=== PATIENT | male | born 1950 | race African-American/Black ===

== ENCOUNTER 2017-07-14 13:15 | Emergency (ER) | payer MEDICARE, OTHER ==
[2017-07-14 13:44] VITALS: BP 137/86
--- NOTE | 2017-07-14 14:23 | ER Document Report ---
ED General - General Chief Complaint: Medication Refill Stated Complaint: MEDICATION REFILL Time Seen by Provider: 07/14/17 14:11 Mode of Arrival: Ambulatory TRAVEL OUTSIDE OF THE [place] IN LAST 30 DAYS: No - HPI Quality of pain: No pain - Related Data Allergies/Adverse Reactions: aspirin [Aspirin] Adverse Reaction (Verified 07/14/17 13:44) Past Medical History - General Information source: Patient - Social History Smoking Status: Never Smoker Family History: Reviewed & Not Pertinent - Past Medical History Cardiac Medical History: Reports: Hx Hypertension Denies: Hx Atrial Fibrillation, Hx Congestive Heart Failure, Hx Coronary Artery Disease, Hx Heart Attack, Hx Hypercholesterolemia, Hx Peripheral Vascular Disease, Hx Pulmonary Embolism, Hx Heart Murmur Pulmonary Medical History: Denies: Hx Asthma, Hx Bronchitis, Hx COPD, Hx Pneumonia, Hx Respiratory Failure, Hx Sleep Apnea - Needs to be tested, not diagnosed, Hx Tuberculosis Neurological Medical History: Denies: Hx Cerebrovascular Accident, Hx Seizures Endocrine Medical History: Denies: Hx Graves' Disease, Hx Hyperthyroidism, Hx Hypothyroidism Renal/ Medical History: Denies: Hx Benign Prostatic Hyperplasia, Hx End Stage Renal Disease, Hx Kidney Stones, Hx Peritoneal Dialysis Malignancy Medical History: Denies Hx Leukemia, Denies Hx Lung Cancer GI Medical History: Reports: Hx Gastroesophageal Reflux Disease. Denies: Hx Crohn's Disease, Hx Hiatal Hernia, Hx Irritable Bowel, Hx Liver Failure, Hx Ulcer Musculoskeltal Medical History: Reports Hx Arthritis, Denies Hx Fibromyalgia, Denies Hx Multiple Sclerosis, Denies Hx Muscular Dystrophy Psychiatric Medical History: Denies: Hx Bipolar Disorder, Hx Dementia, Hx Depression, Hx Post Traumatic Stress Disorder, Hx Schizophrenia Traumatic Medical History: Denies: Hx Fractures Infectious Medical History: Denies: Hx HIV Past Surgical History: Reports: Hx Cholecystectomy. Denies: Hx Appendectomy, Hx Bowel Surgery, Hx Colostomy, Hx Coronary Artery Bypass Graft, Hx Gastric Bypass Surgery, Hx Herniorrhaphy, Hx Pacemaker, Hx Tonsillectomy - Immunizations Immunizations up to date: Yes Hx Diphtheria, Pertussis, Tetanus Vaccination: - unknown Hx Pneumococcal Vaccination: 08/31/11 Review of Systems - Review of Systems Constitutional: No symptoms reported EENT: No symptoms reported Cardiovascular: No symptoms reported Respiratory: No symptoms reported Gastrointestinal: No symptoms reported Genitourinary: No symptoms reported Male Genitourinary: No symptoms reported Musculoskeletal: No symptoms reported Skin: No symptoms reported Hematologic/Lymphatic: No symptoms reported Neurological/Psychological: No symptoms reported Physical Exam - Vital signs Vitals: Temp Pulse Resp BP Pulse Ox 98.8 F 72 14 137/86 H 95 07/14/17 13:39 07/14/17 13:39 07/14/17 13:39 07/14/17 13:39 07/14/17 13:39 - Notes Notes: Upon entering the room the patient asked me point blank whether is going to refill his Ultram prescription. I said we generally do not refill chronic scheduled medications. He became angry and belligerent that up at the bedside not allowing me to do a physical assessment on him. Numerous attempts to try to get him to calm down and sit down Diana do a full examination on him he refused to do so walked out of the department. He was awake alert with a GCS of 15 fully clothed and ambulatory after driving here. Vital signs were reviewed blood pressure 137/86 pulse 72 respiration 14 temp 98 8 O2 sat 95% on room air. Course - Re-evaluation Re-evalutation: 07/14/17 14:41 Patient presents emergency department wanting a refill on his Ultram prescription. Patient states that his doctor is out of town and that they told him that Dr. Andrade was covering. He states that he called Dr. Andrade's office and they told him to go to the emergency department but they do not refill any controlled substances. At the bedside the patient is very blunted asked me whether is going to refill the medication not I explained to him that we have a medication refill policy and that the primary care physician has rules and regulations on the refilling of medications. He became very angry spit up was very verbally abusive and argumentative stating that he was not being taken care of appropriately. He stated that he was going to go directly to Dr. Andrade' s office and tell them that they were going to refill her medications. At this point he did not allow me to do a physical examination refused to sit down or cooperate and walked out of the emergency department. I contacted Dr. Andrade's office who confirmed that they spoke to him and told him that they do not refill scheduled medications. I also spoke with Dr. Lopez's [place] revenue officer who stated that they had problems with him in the past being very verbally abusive and angry with them and that they were explained to him that until Dr. Lopez comes back do not want to refill the medication. I was concerned at this point about the possibility of him going to that primary care office upset and therefore communicated that with them as well. - Vital Signs Vital signs: Temp Pulse Resp BP Pulse Ox 98.8 F 72 14 137/86 H 95 07/14/17 13:39 07/14/17 13:39 07/14/17 13:39 07/14/17 13:39 07/14/17 13:39 Discharge - Discharge Clinical Impression: Medication refill Condition: Stable Disposition: HOME, SELF-CARE Additional Instructions: You have been seen and evaluated requesting a refill on a controlled substance. I spoke with your primary care [place] revenue officer who stated she explained he is in until your primary care physician comes back that he cannot get a refill on that that she is explained the policy to you. I have also contacted the nurse manager maritime at Dr. Andrade's office who remembers vividly telling him that they too do not refill controlled substances. He will need to make sure that you follow policy in regards to any controlled substances with your primary care physician and return for increasing worsening or new symptoms Referrals: BRET LOPEZ MD [Primary Care Provider] - Follow up in 3-5 days
== END 2017-07-14 14:25 | disposition home or self-care (01) ==
LOC: ER 13:15
DX: Z76.0 Encounter for issue of repeat prescription (principal)
CPT/HCPCS: 99281

== ENCOUNTER → 2017-12-08 | Outpatient (CLI) | payer OTHER, MEDICARE | LOC: SP 13:37 | PROVIDERS: ATTEND Internal Medicine | DX: R22.41 Localized swelling, mass and lump, right lower limb (principal) | CPT/HCPCS: 93971 ==

== ENCOUNTER → 2018-03-19 | Outpatient (CLI) | payer MEDICARE, OTHER ==
[~2018-03-19] MED LIST: AMINOPHYLLINE INJ/PF 250 MG/10 ML SDV IV ONE
--- NOTE | 2018-03-19 12:32 | DRAGON STRESS TEST REPORT ---
INTRAVENOUS LEXISCAN CARDIOLITE STRESS TEST USING SINGLE PHOTON EMMISION COMPUTERIZED TOMOGRAPHIC. DATE OF PROCEDURE: March 19, 2018, INDICATION : Chest pain CARDIAC RISK FACTORS: Hypertension RESTING EKG: Sinus rhythm, right bundle branch block pattern with some secondary ST-T wave changes. STRESS EKG: No significant ST segment changes noted with LexiScan bolus REASON FOR TERMINATION: Protocol. PROCEDURE REPORT: Baseline heart rate 75 beats per minute with blood pressure of 122/74. Patient had no significant complaints. Patient was bolused with Lexiscan 0.4 mg intravenously followed by saline bolus. Heart rate at 2 minutes post bolus 96 with a blood pressure of 127/76. 3 minutes post bolus heart rate 97 with blood pressure of 125/74. No significant EKG changes were noted. Patient had no significant complaints during the procedure or postprocedure. Patient injected with Aminophyllin 75 mg at 3 minutes or later after Lexiscan bolus. CONCLUSIONS: Normal EKG and hemodynamic response to IV LexiScan. NUCLEAR DATA: At rest the patient was given 14.62 millicuries of technetium 99 sestamibi injected intravenously. As per protocol rest gated SPECT images were obtained. On day of stress test, the patient was given intravenous LexiScan at a dose of 0.4 mg in 5 mL intravenously, followed by flush with normal saline. Subsequently the stress dose of 45.9 millicuries of technetium 99 sestamibi was injected intravenously. As per protocol stress gated images were obtained. NUCLEAR INTERPRETATION: Both raw and processed data were used for interpretation. Visual, qualitative, computer-generated quantitative data was used. There was good myocardial uptake of technetium compound. Motion artifact and soft tissue attenuations were noted. Increased visceral uptake was noted. No definitive areas of transient perfusion defect noted, No definitive areas of fixed perfusion defect or scars noted. EKG gated imaging showed LV EF at 65 %, rest and stress gated EF similar visually. T. I D. ratio was 0.93. Lung heart ratio noted to be within normal limits 0.32. No significant extracardiac and abnormal radiotracer activities were noted. RV free wall uptake was noted to be WNL. IMPRESSION: Also refer to comments under nuclear interpretation. Also test results needs to be interpreted in the context of pretest probability. 1. No definitive areas of transient perfusion defect noted. 2. There is no definitive scintigraphic evidence of myocardial infarction/scar. 3. EKG gated imaging shows left ventricular ejection fraction of approx. 65 %. 4. Clinical correlation requested as occasionally single vessel disease or balanced ischemia could be missed. In approximately 10% of the cases Lexiscan may not cause adequate vasodilatory stress. RECOMMENDATIONS: Aggressive risk factor modification and medical management. Further evaluation may be needed if continued symptoms or other high risk indicators are noted on clinical evaluation. Close cardiology follow-up is also recommended. Clinical correlation with echocardiogram derived ejection fraction. Inability to exercise by itself can lead to increased cardiovascular event risks. Consider cardiology consultation and or follow-up if clinically indicated. I am available for cardiology evaluation and consultation if requested by the rehabilitation worker, unless patient already has a zipper setter lockstitch. DENNISE
== END ==
LOC: RAD 06:23
PROVIDERS: ATTEND Internal Medicine
DX: R07.9 Chest pain, unspecified (principal)
CPT/HCPCS: 93017; 78452; A9500; J0280; Q9969

== ENCOUNTER → 2018-05-22 | Outpatient (CLI) | payer MEDICARE, OTHER ==
--- NOTE | 2018-05-22 16:37 | RADIOLOGY REPORT (SQ) ---
EXAM DESCRIPTION: ELBW BILATERAL 2 VIEWS MIN COMPLETED DATE/TIME: 05/22/2018 4:28 pm REASON FOR STUDY: M15.0 PRIMARY GENERALIZED (OSTEO) ARTHRITIS COMPARISON: None. NUMBER OF VIEWS: Four views. TECHNIQUE: AP, lateral, and both oblique radiographic images acquired of the right and left elbow. LIMITATIONS: None. FINDINGS: MINERALIZATION: Normal. BONES: No acute fracture or dislocation. No worrisome bone lesions. Posterior spur on the right and l eft olecranon. JOINT: No effusions. SOFT TISSUES: No soft tissue swelling. No foreign body. OTHER: No other significant finding. IMPRESSION: CHRONIC CHANGES WITH SPUR ON THE RIGHT AND LEFT OLECRANON. NO OTHER SIGNIFICANT FINDING S. TECHNICAL DOCUMENTATION: JOB ID: [id number] [employer]- All Rights Reserved Reading location - IP/workstation name: [email or web address]
--- NOTE | 2018-05-22 16:37 | RADIOLOGY REPORT (SQ) ---
EXAM DESCRIPTION: WRIST BILATERAL 2 VIEWS COMPLETED DATE/TIME: 05/22/2018 4:28 pm REASON FOR STUDY: M15.0 PRIMARY GENERALIZED (OSTEO) ARTHRITIS COMPARISON: None. NUMBER OF VIEWS: Two views. TECHNIQUE: AP, lateral, and oblique radiographic images acquired of the right and left wrist. LIMITATIONS: None. FINDINGS: MINERALIZATION: Normal. BONES: No acute fracture or dislocation. No worrisome bone lesions. Normal alignment. No significant osteophytes. JOINTS: No erosions. No aisha-articular osteopenia. No chondrocalcinosis. SOFT TISSUES: No swelling. No calcifications. OTHER: No other significant finding. IMPRESSION: NEGATIVE STUDY OF THE RIGHT AND LEFT WRISTS. NO EXPLANATION FOR PAIN. TECHNICAL DOCUMENTATION: JOB ID: [id number] [employer]- All Rights Reserved Reading location - IP/workstation name: [email or web address]
--- NOTE | 2018-05-22 16:38 | RADIOLOGY REPORT (SQ) ---
EXAM DESCRIPTION: HIPS BILATERAL COMPLETED DATE/TIME: 05/22/2018 4:28 pm REASON FOR STUDY: M15.0 PRIMARY GENERALIZED (OSTEO) ARTHRITIS COMPARISON: None. NUMBER OF VIEWS: Two views TECHNIQUE: AP pelvis and additional frog-leg view of both hips. LIMITATIONS: None. FINDINGS: MINERALIZATION: Normal. HIPS: No acute fracture or dislocation. No worrisome bone lesions. PELVIS AND SACRUM: No acute fracture or dislocation. No worrisome bone lesions. PUBIS AND ISCHIUM: No acute fracture. LOWER LUMBAR SPINE: No significant findings as visualized. SOFT TISSUES: No findings. OTHER: No other significant finding. IMPRESSION: NEGATIVE STUDY OF THE PELVIS AND HIPS. TECHNICAL DOCUMENTATION: JOB ID: [id number] [employer]- All Rights Reserved Reading location - IP/workstation name: [email or web address]
--- NOTE | 2018-05-22 16:38 | RADIOLOGY REPORT (SQ) ---
EXAM DESCRIPTION: KNEE BILAT AP UPRIGHT COMPLETED DATE/TIME: 05/22/2018 4:28 pm REASON FOR STUDY: M15.0 PRIMARY GENERALIZED (OSTEO) ARTHRITIS COMPARISON: None. NUMBER OF VIEWS: One view. TECHNIQUE: AP standing bilateral knees. LIMITATIONS: None. FINDINGS: MINERALIZATION: Normal. RIGHT KNEE BONES: No acute fracture. No worrisome bone lesions. MEDIAL COMPARTMENT: No significant osteophytes. No joint space narrowing. No chondrocalcinosis. LATERAL COMPARTMENT: No significant osteophytes. No joint space narrowing. No chondrocalcinosis. LEFT KNEE BONES: No acute fracture. No worrisome bone lesions. MEDIAL COMPARTMENT: No significant osteophytes. No joint space narrowing. No chondrocalcinosis. LATERAL COMPARTMENT: No significant osteophytes. No joint space narrowing. No chondrocalcinosis. IMPRESSION: NEGATIVE STUDY OF THE STANDING LEFT AND RIGHT KNEES. NO SIGNIFICANT JOINT SPACE NARROWIN G OR OTHER SIGNS OF ARTHRITIS. TECHNICAL DOCUMENTATION: JOB ID: [id number] [employer]- All Rights Reserved Reading location - IP/workstation name: [email or web address]
== END ==
LOC: RAD 15:52
PROVIDERS: ATTEND Internal Medicine
DX: M15.0 Primary generalized (osteo)arthritis (principal)
CPT/HCPCS: 73522; 73565

== ENCOUNTER 2018-07-27 09:38 | Day surgery (SDC) | payer MEDICARE, OTHER ==
[~2018-07-27 09:38] MED LIST changes: -AMINOPHYLLINE INJ/PF 250 MG/10 ML SDV IV ONE; +KETOROLAC TROMETHAMINE 0.45% 4 DROP/0.4 ML DROPERETTE OS PRN; +MIDAZOLAM 2 MG/2 ML INJ ONE
[2018-07-27] MEDS ORDERED: CHONDR SU A NA/HYALUR INTRAOC KIT (SURGICARE) ONE (09:44)
[2018-07-27] MEDS ORDERED: EPINEPHRINE INJ/PF 1 MG/1 ML AMPULE ONE (09:44)
[2018-07-27] MEDS ORDERED: LIDOCAINE 1% INJ-PF (10 MG/ML) 30 ML SDV ONE (09:44)
[2018-07-27] MEDS: CYCLOPENTOLATE 0.2%/PHENYLEPHRINE 1% OPH SOLN 2 ML OS PRN ×3 (10:23→10:43)
[2018-07-27] MEDS: TROPICAMIDE 1% OPH SOLN 3 ML OS PRN ×3 (10:23→10:43)
[2018-07-27] MEDS: BESIFLOXACIN HCL 0.6% OPH SUSP 5 ML BOTTLE OS PRN ×4 (10:23→11:23)
[2018-07-27] MEDS: TETRACAINE HCL 0.5% OPH SOLN 2 ML OS PRN ×3 (10:24→11:03)
[2018-07-27] MEDS ORDERED: MIDAZOLAM 2 MG/2 ML INJ ONE (13:24)
--- NOTE | 2018-07-27 16:21 | [facility] OPERATIVE REPORT E ---
[facility] Operative Report NAME: MAGALY KEANE AGE: 67Y DATE OF SURGERY: 07/27/2018 ROOM: PREOPERATIVE DIAGNOSIS: CATARACT, LEFT EYE. POSTOPERATIVE DIAGNOSIS: CATARACT, LEFT EYE. OPERATION: Cataract extraction with insertion of an IOL of the left eye. SURGEON: JASON PHILLIPS M.D. ANESTHESIA: Topical. PROCEDURE: After obtaining appropriate consent, the patient's left eye was prepped and draped in sterile fashion as well as the surgeon in a sterile manner and cataract surgery was started. First a paracentesis blade was used to make a side-port incision. Viscoelastic was used to inflate the anterior chamber. Next a 2.4 mm incision was made with a 2.4 mm blade, clear corneal temporally. A continuous capsulorrhexis was made using a cystotome and Utrata forceps. Following this hydrodissection was carried out to make the lens fully loose and mobile and it was rotated 90 degrees. Following this, a ypsqzm-mvl-voegqwe technique was used to phacoemulsify the lens with a CDE of 7.24. The remaining cortex was removed with irrigation/aspiration. Provisc was instilled into the capsular bag to inflate the bag. A SN60WF, 23.0 diopter lens was placed. The remaining viscoelastic material was removed with irrigation/aspiration. Following this, the incision was found to be watertight. Besivance was instilled into the eye and a protective shield was placed over the eye. The patient returned to the postoperative recovery in stable condition. DICTATING PHYSICIAN: JASON PHILLIPS M.D. [id number] PHY#: [id number] ID: [id number] JOB#: [id number] ACCT: [id number] cc:JASON PHILLIPS M.D. >
--- NOTE | 2018-07-27 16:21 | [facility] DISCHARGE SUMMARY E ---
[facility] Discharge Summary NAME: MAGALY KEANE AGE: 67Y ADMITTED: 07/27/2018 DISCHARGED: This is a 67-year-old male who underwent cataract extraction of the left eye. DIAGNOSIS: Cataract, left eye. He underwent surgery because he was having trouble seeing at night secondary to glare from the headlights. DISCHARGE INSTRUCTIONS: He should be on a regular diet. No bending at his waist, no heavy lifting. He is to use his Besivance, Ilevro, and Durezol at 3:00 p.m. and 8:00 p.m., and sleep with a rigid shield. I will see him for his 1-day postoperative tomorrow. DICTATING PHYSICIAN: JASON PHILLIPS M.D. [id number] PHY#: [id number] ID: [id number] JOB#: [id number] ACCT: [id number] cc:JASON PHILLIPS M.D. >
== END 2018-07-27 12:10 | disposition home or self-care (01) ==
LOC: SC 09:38
PROVIDERS: ATTEND Internal Medicine
DX: H25.813 Combined forms of age-related cataract, bilateral (principal); H43.811 Vitreous degeneration, right eye; H52.4 Presbyopia; I10 Essential (primary) hypertension; Z79.82 Long term (current) use of aspirin; Z79.899 Other long term (current) drug therapy
CPT/HCPCS: 66984; V2632; J2250; J3490 ×2; A9270; J0171; 142

== ENCOUNTER 2018-09-03 06:56 | Day surgery (SDC) | payer MEDICARE, OTHER ==
[~2018-09-03 06:56] MED LIST changes: +KETOROLAC TROMETHAMINE 0.45% 4 DROP/0.4 ML DROPERETTE OD PRN; -KETOROLAC TROMETHAMINE 0.45% 4 DROP/0.4 ML DROPERETTE OS PRN; -MIDAZOLAM 2 MG/2 ML INJ ONE
[2018-09-03] MEDS: TETRACAINE HCL 0.5% OPH SOLN 4 ML OD PRN ×4 (08:12→08:42)
[2018-09-03] MEDS: CYCLOPENTOLATE 0.2%/PHENYLEPHRINE 1% OPH SOLN 2 ML OD PRN ×3 (08:13→08:34)
[2018-09-03] MEDS: TROPICAMIDE 1% OPH SOLN 3 ML OD PRN ×3 (08:13→08:34)
[2018-09-03] MEDS: BESIFLOXACIN HCL 0.6% OPH SUSP 5 ML BOTTLE OD PRN ×4 (08:13→09:10)
[2018-09-03] MEDS ORDERED: MIDAZOLAM 2 MG/2 ML INJ ONE (08:26)
[2018-09-03] MEDS ORDERED: FENTANYL CITRATE INJ/PF 100 MCG/2 ML AMPUL ONE (08:26)
[2018-09-03] MEDS: LIDOCAINE 1% INJ-PF (10 MG/ML) 30 ML SDV ONE ×2 (08:53)
[2018-09-03] MEDS: CHONDR SU A NA/HYALUR INTRAOC KIT (SURGICARE) ONE ×2 (08:53)
[2018-09-03] MEDS: EPINEPHRINE INJ/PF 1 MG/1 ML AMPULE ONE ×2 (08:53)
[2018-09-03] MEDS ORDERED: TOBRAMYCIN SULFATE/DEXAMETH OPH SUSP 2.5 ML ONE (09:07)
[2018-09-03] MEDS ORDERED: TOBRAMYCIN SULFATE/DEXAMETH OPH OINTMENT 3.5 GM ONE (09:09)
--- NOTE | 2018-09-03 20:11 | [facility] OPERATIVE REPORT E ---
[facility] Operative Report NAME: MAGALY KEANE AGE: 67Y DATE OF SURGERY: 09/03/2018 ROOM: PREOPERATIVE DIAGNOSIS: CATARACT, RIGHT EYE. POSTOPERATIVE DIAGNOSIS: CATARACT, RIGHT EYE. OPERATION: Cataract extraction with insertion of an IOL of the right eye. SURGEON: JASON PHILLIPS M.D. ANESTHESIA: Topical. PROCEDURE: After obtaining appropriate consent, the patient's right eye was prepped and draped in sterile fashion as well as the surgeon in a sterile manner and cataract surgery was started. First a paracentesis blade was used to make a side-port incision. Viscoelastic was used to inflate the anterior chamber. Next a 2.4 mm incision was made with a 2.4 mm blade, clear corneal temporally. A continuous capsulorrhexis was made using a cystotome and Utrata forceps. Following this hydrodissection was carried out to make the lens fully loose and mobile and it was rotated 90 degrees. Following this, a vuachy-oye-znpchjg technique was used to phacoemulsify the lens with a CDE of 10.43. The remaining cortex was removed with irrigation/aspiration. Provisc was instilled into the capsular bag to inflate the bag. A SN60WF, 22.5 diopter lens was placed. The remaining viscoelastic material was removed with irrigation/aspiration. Following this, the incision was found to be watertight. Besivance was instilled into the eye and a protective shield was placed over the eye. The patient returned to the postoperative recovery in stable condition. DICTATING PHYSICIAN: JASON PHILLIPS M.D. [id number] PHY#: [id number] ID: [id number] JOB#: [id number] ACCT: [id number] cc:JASON PHILLIPS M.D. >
--- NOTE | 2018-09-03 20:16 | [facility] DISCHARGE SUMMARY E ---
[facility] Discharge Summary NAME: MAGALY KEANE AGE: 67Y ADMITTED: 09/03/2018 DISCHARGED: 09/03/2018 FINAL DIAGNOSIS: Cataract, right eye. HOSPITAL COURSE: This is a 67-year-old male who underwent cataract extraction, right eye. He underwent surgery because he was having glare from headlights at night, making it difficult to read the road signs. DISCHARGE INSTRUCTIONS: He should be on a regular diet. No bending at his waist, no heavy lifting. He should use Besivance, Ilevro and Durezol at 3:00 p.m. and 8:00 p.m. Sleep with a rigid shield. I will see him for his 1-day postoperative tomorrow. DICTATING PHYSICIAN: JASON PHILLIPS M.D. [id number] PHY#: [id number] ID: [id number] JOB#: [id number] ACCT: [id number] cc:JASON PHILLIPS M.D. >
== END 2018-09-03 09:55 | disposition home or self-care (01) ==
LOC: SC 06:56
PROVIDERS: ATTEND Internal Medicine
DX: H25.811 Combined forms of age-related cataract, right eye (principal); Z96.1 Presence of intraocular lens; I10 Essential (primary) hypertension; G47.30 Sleep apnea, unspecified; R01.1 Cardiac murmur, unspecified; Z79.899 Other long term (current) drug therapy; Z88.6 Allergy status to analgesic agent
CPT/HCPCS: 66984; V2632; J2250; J3490 ×4; A9270; J0171; J3010; 142

== ENCOUNTER → 2019-08-23 | Outpatient (CLI) | payer MEDICARE, OTHER ==
--- NOTE | 2019-08-23 16:46 | RADIOLOGY REPORT (SQ) ---
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 TECHNIQUE: Multiplanar imaging includes non-contrasted T1, T2, FLAIR, and diffusion with ADC map seq uences. Images stored on PACS. LIMITATIONS: None. FINDINGS: ANATOMY: No anomalies. Normal vascular flow voids. Pituitary fossa normal. CSF SPACES: Atrophy induced prominence of ventricles and CSF spaces. CEREBRUM: High signal intensity lesions scattered throughout the white matter on FLAIR imaging with d istribution suggesting micro-vascular ischemic changes. No evidence of hemorrhage, mass, or extraaxi al fluid collection. POSTERIOR FOSSA: No signal alteration. No hemorrhage. No edema, masses or mass effect. Internal kale tory canals, cerebello-pontine angles, mastoids normal. DIFFUSION IMAGING: Negative for acute or sub-acute infarction. ORBITS: No masses. Globes normal. PARANASAL SINUSES: No fluid levels. Mucosa normal. OTHER: No other significant finding. IMPRESSION: ATROPHY AND CHRONIC MICRO-VASCULAR ISCHEMIC CHANGES. OTHERWISE NORMAL MRI OF THE BRAIN W ITHOUT INTRAVENOUS GADOLINIUM CONTRAST. EVIDENCE OF ACUTE STROKE: NO. COMMENT: The findings were sent to the Radiology Results Communication Center at 16:40 on 08/23/2019 to be communicated to a licensed caregiver. TECHNICAL DOCUMENTATION: JOB ID: [id number] [employer] [facility]- All Rights Reserved Reading location - IP/workstation name: [email or web address]
== END ==
LOC: RAD 15:46
PROVIDERS: ATTEND Internal Medicine
DX: I69.998 Other sequelae following unspecified cerebrovascular disease (principal)
CPT/HCPCS: 70551

== ENCOUNTER → 2019-09-20 | Outpatient (CLI) | payer MEDICARE, OTHER ==
[2019-09-20 13:02] LABS: ABSOLUTE LYMPHOCYTES (AUTO) 1.9 10^3/uL (0.5-4.7); ABSOLUTE MONOCYTES (AUTO) 0.5 10^3/uL (0.1-1.4); BASOPHILS % (AUTO) 0.7 % (0-2); EOSINOPHILS % (AUTO) 0.6 % (0-6); HEMATOCRIT 47.7 % (37.9-51.0); HEMOGLOBIN 15.8 g/dL (13.5-17.0); LYMPHOCYTES % (AUTO) 34.8 % (13-45); MEAN CORPUSCULAR HEMOGLOBIN 29.8 pg (27.0-33.4); MEAN CORPUSCULAR HGB CONC 33.2 g/dL (32.0-36.0); MEAN CORPUSCULAR VOLUME 90 fl (80-97); MONOCYTES % (AUTO) 8.7 % (3-13); PLATELET COUNT 173 10^3/uL (150-450); RED BLOOD COUNT 5.32 10^6/uL (4.35-5.55); RED CELL DISTRIBUTION WIDTH 12.6 % (11.5-14.0); SEGMENTED NEUTROPHILS % (AUTO) 55.2 % (42-78); TOTAL CELLS COUNTED % (AUTO) 100 %; WHITE BLOOD COUNT 5.4 10^3/uL (4.0-10.5)
[2019-09-20 13:06] LABS: APPEARANCE,URINE SLIGHTLY-CLOUDY; BILIRUBIN,URINE NEGATIVE (NEGATIVE); COLOR,URINE YELLOW; GLUCOSE, URINE NEGATIVE (NEGATIVE); KETONES,URINE NEGATIVE (NEGATIVE); LEUKOCYTE ESTERASE,URINE TRACE (NEGATIVE); NITRITE,URINE NEGATIVE (NEGATIVE); PROTEIN,URINE >=500 mg/dL (NEGATIVE); URINE SPECIFIC GRAVITY 1.023; UROBILINOGEN,URINE NEGATIVE mg/dL (<2.0)
[2019-09-20 13:23] LABS: ALBUMIN 4.2 g/dL (3.5-5.0); ALKALINE PHOSPHATASE 77 U/L (38-126); ANION GAP 11 (5-19); ASPARTATE AMINO TRANSFERASE 30 U/L (17-59); BILIRUBIN,DIRECT 0.2 mg/dL (0.0-0.4); BILIRUBIN,TOTAL 1.1 mg/dL (0.2-1.3); BLOOD UREA NITROGEN 14 mg/dL (7-20); CALCIUM 9.5 mg/dL (8.4-10.2); CARBON DIOXIDE 31 mmol/L (22-30); CHLORIDE 105 mmol/L (98-107); GLUCOSE 144 mg/dL (75-110); POTASSIUM 4.1 mmol/L (3.6-5.0); TOTAL PROTEIN 7.5 g/dL (6.3-8.2); URIC ACID 7.3 mg/dL (3.5-8.5)
[2019-09-20 13:37] LABS: URINE CREATININE 224.1 mg/dL (22-328)
[2019-09-20 15:33] LABS: UR PRO/CREAT RATIO RESULT 1.3 mg/mg (0.0-0.2); URINE PROTEIN 290.4 mg/dL (<12)
== END ==
LOC: OD 12:01
PROVIDERS: ATTEND Internal Medicine Nephrology
DX: E11.9 Type 2 diabetes mellitus without complications (principal); R80.9 Proteinuria, unspecified; R31.9 Hematuria, unspecified
CPT/HCPCS: 36415; 80053; 81001; 82570; 83735; 84156; 84550; 85025

== ENCOUNTER → 2019-11-11 | Outpatient (CLI) | payer MEDICARE, OTHER ==
[2019-11-11 10:29] LABS: ABSOLUTE EOSINOPHILS # (AUTO) 0.1 10^3/uL (0.0-0.6); ABSOLUTE NEUT (AUTO) 3.9 10^3/uL (1.7-8.2); APPEARANCE,URINE CLEAR; BASOPHILS % (AUTO) 0.5 % (0-2); BILIRUBIN,URINE NEGATIVE (NEGATIVE); COLOR,URINE YELLOW; EOSINOPHILS % (AUTO) 0.8 % (0-6); GLUCOSE, URINE NEGATIVE (NEGATIVE); HEMATOCRIT 45.1 % (37.9-51.0); HEMOGLOBIN 15.3 g/dL (13.5-17.0); KETONES,URINE NEGATIVE (NEGATIVE); LEUKOCYTE ESTERASE,URINE NEGATIVE (NEGATIVE); LYMPHOCYTES % (AUTO) 37.7 % (13-45); MEAN CORPUSCULAR HEMOGLOBIN 30.2 pg (27.0-33.4); MEAN CORPUSCULAR HGB CONC 34.1 g/dL (32.0-36.0); MEAN CORPUSCULAR VOLUME 89 fl (80-97); MONOCYTES % (AUTO) 12.1 % (3-13); NITRITE,URINE NEGATIVE (NEGATIVE); PLATELET COUNT 213 10^3/uL (150-450); PROTEIN,URINE 100 mg/dL (NEGATIVE); RED BLOOD COUNT 5.08 10^6/uL (4.35-5.55); RED CELL DISTRIBUTION WIDTH 13.3 % (11.5-14.0); SEGMENTED NEUTROPHILS % (AUTO) 48.9 % (42-78); TOTAL CELLS COUNTED % (AUTO) 100 %; URINE SPECIFIC GRAVITY 1.017; UROBILINOGEN,URINE NEGATIVE mg/dL (<2.0); WHITE BLOOD COUNT 7.9 10^3/uL (4.0-10.5)
[2019-11-11 10:54] LABS: ALBUMIN 4.5 g/dL (3.5-5.0); ALKALINE PHOSPHATASE 95 U/L (38-126); ANION GAP 12 (5-19); ASPARTATE AMINO TRANSFERASE 24 U/L (17-59); BILIRUBIN,DIRECT 0.1 mg/dL (0.0-0.4); BILIRUBIN,TOTAL 1.3 mg/dL (0.2-1.3); BLOOD UREA NITROGEN 14 mg/dL (7-20); CALCIUM 9.5 mg/dL (8.4-10.2); CARBON DIOXIDE 32 mmol/L (22-30); CHLORIDE 101 mmol/L (98-107); GLUCOSE 137 mg/dL (75-110); POTASSIUM 3.7 mmol/L (3.6-5.0); TOTAL PROTEIN 7.7 g/dL (6.3-8.2); URIC ACID 7.5 mg/dL (3.5-8.5)
[2019-11-11 10:58] LABS: UR PRO/CREAT RATIO RESULT 0.8 mg/mg (0.0-0.2); URINE CREATININE 206.1 mg/dL (22-328); URINE PROTEIN 172.9 mg/dL (<12)
== END ==
LOC: OD 09:16
PROVIDERS: ATTEND Internal Medicine Nephrology
DX: R80.9 Proteinuria, unspecified (principal); R31.9 Hematuria, unspecified; E11.9 Type 2 diabetes mellitus without complications
CPT/HCPCS: 36415; 80053; 81001; 82570; 83735; 84156; 84550; 85025

== ENCOUNTER → 2020-02-08 | Outpatient (CLI) | payer MEDICARE, OTHER ==
[2020-02-08 17:18] LABS: ABSOLUTE EOSINOPHILS # (AUTO) 0.1 10^3/uL (0.0-0.6); ABSOLUTE LYMPHOCYTES (AUTO) 3.3 10^3/uL (0.5-4.7); ABSOLUTE MONOCYTES (AUTO) 0.8 10^3/uL (0.1-1.4); BASOPHILS % (AUTO) 0.4 % (0-2); EOSINOPHILS % (AUTO) 1.1 % (0-6); HEMOGLOBIN 15.6 g/dL (13.5-17.0); LYMPHOCYTES % (AUTO) 45.2 % (13-45); MEAN CORPUSCULAR HEMOGLOBIN 30.2 pg (27.0-33.4); MEAN CORPUSCULAR HGB CONC 33.9 g/dL (32.0-36.0); MEAN CORPUSCULAR VOLUME 89 fl (80-97); MONOCYTES % (AUTO) 11.6 % (3-13); PLATELET COUNT 204 10^3/uL (150-450); RED BLOOD COUNT 5.17 10^6/uL (4.35-5.55); RED CELL DISTRIBUTION WIDTH 12.9 % (11.5-14.0); SEGMENTED NEUTROPHILS % (AUTO) 41.7 % (42-78); TOTAL CELLS COUNTED % (AUTO) 100 %; WHITE BLOOD COUNT 7.3 10^3/uL (4.0-10.5)
[2020-02-08 17:28] LABS: APPEARANCE,URINE CLEAR; BILIRUBIN,URINE NEGATIVE (NEGATIVE); COLOR,URINE YELLOW; GLUCOSE, URINE NEGATIVE (NEGATIVE); KETONES,URINE NEGATIVE (NEGATIVE); LEUKOCYTE ESTERASE,URINE NEGATIVE (NEGATIVE); NITRITE,URINE NEGATIVE (NEGATIVE); PROTEIN,URINE 100 mg/dL (NEGATIVE); UROBILINOGEN,URINE NEGATIVE mg/dL (<2.0)
[2020-02-08 17:31] LABS: ALBUMIN 4.5 g/dL (3.5-5.0); ALKALINE PHOSPHATASE 80 U/L (38-126); ANION GAP 11 (5-19); ASPARTATE AMINO TRANSFERASE 38 U/L (17-59); BILIRUBIN,DIRECT 0.3 mg/dL (0.0-0.4); BILIRUBIN,TOTAL 0.9 mg/dL (0.2-1.3); BLOOD UREA NITROGEN 15 mg/dL (7-20); CARBON DIOXIDE 31 mmol/L (22-30); CHLORIDE 101 mmol/L (98-107); GLUCOSE 75 mg/dL (75-110); POTASSIUM 3.7 mmol/L (3.6-5.0); TOTAL PROTEIN 7.9 g/dL (6.3-8.2); URIC ACID 6.9 mg/dL (3.5-8.5)
[2020-02-08 17:39] LABS: ADD MANUAL MICROSCOPIC YES
[2020-02-08 17:40] LABS: HYALINE CASTS, URINE RARE /LPF; WBC,URINE RARE /HPF
[2020-02-08 17:45] LABS: URINE CREATININE 213.9 mg/dL (22-328)
[2020-02-08 17:53] LABS: UR PRO/CREAT RATIO RESULT 1.1 mg/mg (0.0-0.2); URINE PROTEIN 234.1 mg/dL (<12)
== END ==
LOC: OD 15:47
PROVIDERS: ATTEND Internal Medicine Nephrology
DX: R80.9 Proteinuria, unspecified (principal); R31.9 Hematuria, unspecified
CPT/HCPCS: 36415; 80053; 81001; 82570; 83735; 84156; 84550; 85025

== ENCOUNTER → 2020-09-20 | Outpatient (CLI) | payer MEDICARE, OTHER ==
[2020-09-20 13:12] LABS: ABSOLUTE EOSINOPHILS # (AUTO) 0.2 10^3/uL (0.0-0.6); ABSOLUTE LYMPHOCYTES (AUTO) 1.9 10^3/uL (0.5-4.7); ABSOLUTE MONOCYTES (AUTO) 0.6 10^3/uL (0.1-1.4); ABSOLUTE NEUT (AUTO) 3.3 10^3/uL (1.7-8.2); BASOPHILS % (AUTO) 0.5 % (0-2); HEMATOCRIT 43.1 % (37.9-51.0); HEMOGLOBIN 14.5 g/dL (13.5-17.0); LYMPHOCYTES % (AUTO) 31.1 % (13-45); MEAN CORPUSCULAR HEMOGLOBIN 30.3 pg (27.0-33.4); MEAN CORPUSCULAR HGB CONC 33.7 g/dL (32.0-36.0); MEAN CORPUSCULAR VOLUME 90 fl (80-97); MONOCYTES % (AUTO) 10.6 % (3-13); PLATELET COUNT 191 10^3/uL (150-450); SEGMENTED NEUTROPHILS % (AUTO) 54.8 % (42-78); TOTAL CELLS COUNTED % (AUTO) 100 %; WHITE BLOOD COUNT 6.1 10^3/uL (4.0-10.5)
[2020-09-20 13:14] LABS: APPEARANCE,URINE CLEAR; BILIRUBIN,URINE NEGATIVE (NEGATIVE); COLOR,URINE YELLOW; GLUCOSE, URINE NEGATIVE (NEGATIVE); KETONES,URINE NEGATIVE (NEGATIVE); LEUKOCYTE ESTERASE,URINE NEGATIVE (NEGATIVE); NITRITE,URINE NEGATIVE (NEGATIVE); PROTEIN,URINE >=500 mg/dL (NEGATIVE); URINE SPECIFIC GRAVITY 1.019; UROBILINOGEN,URINE NEGATIVE mg/dL (<2.0)
[2020-09-20 13:30] LABS: URINE CREATININE 186.9 mg/dL (22-328)
[2020-09-20 13:34] LABS: ANION GAP 11 (5-19); BLOOD UREA NITROGEN 13 mg/dL (7-20); CALCIUM 9.2 mg/dL (8.4-10.2); CARBON DIOXIDE 27 mmol/L (22-30); CHLORIDE 105 mmol/L (98-107); GLUCOSE 117 mg/dL (75-110); POTASSIUM 4.2 mmol/L (3.6-5.0); URIC ACID 4.8 mg/dL (3.5-8.5)
[2020-09-20 13:41] LABS: UR PRO/CREAT RATIO RESULT 1.9 mg/mg (0.0-0.2); URINE PROTEIN 347.7 mg/dL (<12)
== END ==
LOC: OD 11:29
PROVIDERS: ATTEND Internal Medicine Nephrology
DX: R80.9 Proteinuria, unspecified (principal); I10 Essential (primary) hypertension; M10.00 Idiopathic gout, unspecified site
CPT/HCPCS: 36415; 80048; 81001; 82570; 84156; 84550; 85025